=== PATIENT | female | born 1955 | race Caucasian/White ===

== ENCOUNTER → 2021-12-20 | Outpatient (CLI) | payer MEDICARE ==
[2021-12-20 15:01] LABS: RED BLOOD COUNT 1.98 M/UL (4.00-5.10); WHITE BLOOD COUNT 2.5 K/UL (4.5-11.0)
[2021-12-20 15:03] LABS: HEMOGLOBIN 5.8 gm/dl (12.3-15.3)
[2021-12-20 15:58] LABS: BUN/CREATININE RATIO 22 (0-10)
[2021-12-21 13:14] LABS: A/G RATIO 0.5 (0.7-1.7); ALBUMIN 3.7 g/dL (2.9-4.4); ALPHA-1-GLOBULIN 0.5 g/dL (0.0-0.4); ALPHA-2-GLOBULIN 1.2 g/dL (0.4-1.0); BETA GLOBULIN 1.3 g/dL (0.7-1.3); GAMMA GLOBULIN 5.7 g/dL (0.4-1.8); GLOBULIN, TOTAL 8.7 g/dL (2.2-3.9); IMMUNOGLOBULIN A, QN, SERUM 17 mg/dL (87-352); IMMUNOGLOBULIN G, QN, SERUM 6542 mg/dL (586-1602); IMMUNOGLOBULIN M, QN, SERUM 639 mg/dL (26-217); M-SPIKE 5.4 g/dL (Not Observed); PROTEIN, TOTAL, SERUM 12.4 g/dL (6.0-8.5)
== END ==
LOC: LAB 14:09
DX: D64.9 Anemia, unspecified (principal)
CPT/HCPCS: 36415; 80053; 82784; 84155; 84165; 85027; 86334; 86850; 86900; 86901; 86920

== ENCOUNTER → 2021-12-21 | Outpatient (CLI) | payer MEDICARE | LOC: OPSV 09:00 | DX: D64.9 Anemia, unspecified (principal) | CPT/HCPCS: 36430 ==

== ENCOUNTER → 2021-12-27 | Outpatient (CLI) | payer MEDICARE ==
[2021-12-27 17:18] LABS: HEMOGLOBIN 7.3 gm/dl (12.3-15.3); RED BLOOD COUNT 2.49 M/UL (4.00-5.10); WHITE BLOOD COUNT 3.4 K/UL (4.5-11.0)
== END ==
LOC: LAB 16:08
PROVIDERS: Internal Medicine
DX: D61.818 Other pancytopenia (principal); D64.9 Anemia, unspecified
CPT/HCPCS: 36415; 85025

== ENCOUNTER → 2022-01-07 | Outpatient (CLI) | payer MEDICARE | LOC: OPSV 09:00 | DX: D64.9 Anemia, unspecified (principal); D61.818 Other pancytopenia | CPT/HCPCS: 36430; J7050; P9016 ==

== ENCOUNTER → 2022-01-08 | Outpatient (CLI) | payer MEDICARE ==
[2022-01-09 08:49] LABS: HEMOGLOBIN 8.1 gm/dl (12.3-15.3)
== END ==
LOC: LAB 16:39
PROVIDERS: Internal Medicine
DX: C90.00 Multiple myeloma not having achieved remission (principal); D61.818 Other pancytopenia
CPT/HCPCS: 36415; 85014; 85018; 86850; 86900; 86901; 86920; J7050; P9016

== ENCOUNTER → 2022-01-09 | Outpatient (CLI) | payer MEDICARE | LOC: OPSV 09:00 | DX: C90.00 Multiple myeloma not having achieved remission (principal); D61.818 Other pancytopenia | CPT/HCPCS: 36430 ==

== ENCOUNTER → 2022-01-31 | Outpatient (CLI) | payer MEDICARE | LOC: MRI 09:00 | DX: C90.00 Multiple myeloma not having achieved remission (principal); D61.818 Other pancytopenia; D64.9 Anemia, unspecified; K76.9 Liver disease, unspecified; Z01.89 Encounter for other specified special examinations; R16.0 Hepatomegaly, not elsewhere classified; D18.09 Hemangioma of other sites | CPT/HCPCS: 74183; A9577 ==

== ENCOUNTER → 2022-02-11 | Outpatient (CLI) | payer MEDICARE | LOC: OPSV 08:00 | DX: C90.00 Multiple myeloma not having achieved remission (principal); D61.818 Other pancytopenia | CPT/HCPCS: 36430; 96375; J1200; J2930 ==

== ENCOUNTER → 2022-02-14 | Outpatient (CLI) | payer MEDICARE ==
[2022-02-14 10:55] LABS: HEMOGLOBIN 8.7 gm/dl (12.3-15.3); RED BLOOD COUNT 2.9 M/UL (4.00-5.10)
== END ==
LOC: LAB 10:15
PROVIDERS: Internal Medicine
DX: C90.00 Multiple myeloma not having achieved remission (principal); D61.818 Other pancytopenia; C85.90 Non-Hodgkin lymphoma, unspecified, unspecified site
CPT/HCPCS: 36415; 85025

== ENCOUNTER → 2022-02-26 | Outpatient (CLI) | payer MEDICARE ==
[2022-02-26 12:51] LABS: RED BLOOD COUNT 1.94 M/UL (4.00-5.10); WHITE BLOOD COUNT 2.1 K/UL (4.5-11.0)
== END ==
LOC: LAB 12:21
PROVIDERS: Physician Assistant Surgical
DX: C83.00 Small cell B-cell lymphoma, unspecified site (principal); D61.818 Other pancytopenia; D64.9 Anemia, unspecified
CPT/HCPCS: 36415; 85025; 86850; 86900; 86901; 86920; 86922; P9016

== ENCOUNTER → 2022-02-27 | Outpatient (CLI) | payer MEDICARE ==
[~2022-02-27] VITALS: Ht 170.2 cm; Wt 72.6 kg
== END ==
LOC: OPSV 11:25
DX: C83.00 Small cell B-cell lymphoma, unspecified site (principal); D61.818 Other pancytopenia
CPT/HCPCS: 36430; 96375; J1200; J2930